=== PATIENT | female | born 2000 | race Caucasian/White ===

== ENCOUNTER 2024-01-24 08:06 | Emergency (ER) | payer OTHER, SELFPAY ==
[2024-01-24] VITALS (12 sets, daily range): BP systolic 106–171; BP diastolic 69–125; PULSE 69–101; RESP 16–20; TEMP 36.7–37.6; O2SAT 97–100; BMI 35.5
--- NOTE | 2024-01-24 08:37 | EXP.UTC ---
Discharge Plan Disposition Patient Disposition: Still a Patient Condition: Fair Prescriptions Prescriptions: No Action No Known Home Medications Referrals Follow up/Referrals: Provider,Referral, MD [Primary Care Provider] - See instructions Clinical Impressions Clinical Impression: Abdominal pain Print Language Print Language: Czech Discharge ED Provider: Paresh Mcmahon [facility] [place] Stated complaint: nausea, vomiting, right abd pain Mode of Arrival: Ambulatory Source of Information: Patient Limitations: No Limitations Time Seen by Provider: 01/24/24 08:36 Description of Symptoms (Recalled from Triage Doc. by RN): PATIENT C/O RLQ PAIN, NAUSEA, VOMITING, DIARRHEA AND FEVER X 4 DAYS. PATIENT REPORTS SHE HAS NOT URINATED IN APPROX 24 HOURS HEENT Symptoms (Recalled from RN notes): No Resp Symptoms (Recalled from RN notes): No Skin Symptoms (Recalled from RN notes): No MS Symptoms (Recalled from RN notes): No Functional Status (Recalled from RN notes): WNL History of Present Illness Provider Complaint: She states that she has had right lower quad abdominal pain, n/v/d for the past 4 days. She states that she is not holding any thing down. She states that she has not voided or felt the need to in the past 24 hours. She last vomited on arrival to the [facility] here. Related Data Home Medications ?Medication ?Instructions ?Recorded ?Confirmed No Known Home Medications 01/24/24 01/24/24 Allergies Allergy/AdvReac Type Severity Reaction Status Date / Time Sulfa (Sulfonamide Allergy Hives Verified 01/24/24 08:23 Antibiotics) Worker's Comp Is this a Worker's Comp case?: No [facility] Disclaimer: The information contained in this section may have been updated after the patient was seen, as this information can be updated by other users. Medical History (Updated 01/24/24 @ 09:00 by Larry Escamilla APRN) Urinary tract infection Social History Smoking Status: Never smoker alcohol intake: never current occupational status: employed Travel in the last 8 weeks: None ROS Obtained: Yes All systems reviewed & no additional complaints except as documented Constitutional Constitutional: Denies chills, Denies fever(s) and Reports poor appetite ENT Ears, Nose, Mouth, and Throat: Denies dizziness and Denies sore throat Cardiovascular Cardiovascular: Denies dyspnea Respiratory Respiratory: Denies chest congestion, Denies cough and Denies dyspnea Genitourinary Female Genitourinary: Denies difficulty voiding, Denies dysuria, Denies hematuria, Denies urinary frequency, Denies urinary incontinence, Denies urinary hesitancy and Denies urinary urgency Musculoskeletal Musculoskeletal: Denies arthralgias Integumentary/Breasts Skin/Breast: Denies rash Neurologic Neurologic: Denies dizziness Physical Exam General General appearance: alert and in no apparent distress Head Head exam: atraumatic and normocephalic Eye Eye exam: Present normal appearance, PERRL and EOMI ENT ENT exam: Present normal exam, normal oropharynx, mucous membranes moist, TM's normal bilaterally and normal external ear exam Neck Neck exam: Present normal inspection, full ROM and trachea midline; Absent tenderness, meningismus or lymphadenopathy Chest Chest inspection: Present normal inspection and symmetric chest wall rise; Absent tenderness, rash or abscess Respiratory Respiratory exam: Present normal lung sounds bilaterally; Absent respiratory distress, wheezes or stridor Cardiovascular Cardiovascular exam: Present regular rate and normal rhythm; Absent irregular rhythm, systolic murmur, diastolic murmur or JVD Abdominal Exam Abdominal exam: Present soft, guarding, normal bowel sounds and diminished bowel sounds; Absent tenderness Extremities Exam Extremities exam: Present normal inspection and full ROM; Absent tenderness Back Exam Back exam: Present normal inspection and full ROM; Absent tenderness, CVA tenderness (R) or CVA tenderness (L) Neurological Exam Neurological exam: Present alert, oriented X3 and CN II-XII intact Psychiatric Psychiatric exam: Present normal affect and normal mood Skin Skin exam: Present warm, dry, intact and normal color Lymphatic Lymphatic Findings: no adenopathy Medical Decision Making Medical Records Medical records reviewed: No I reviewed the patient's medical records. Screening: Per USPSTF and CDC recommendations, given the prevalence of disease in our region, it is our hospital?s policy to screen for HIV and viral Hepatitis for all patients aged 18 and over and those with ongoing risk factors. Dawson Inquiry Pt receiving controlled substance: No Vital Signs: 01/24/24 08:20 Temperature 98.4 F Temperature Source Oral Pulse Rate [Left Brachial] 95 H Respiratory Rate 18 Blood Pressure [Left Arm] 125/84 Blood Pressure Mean [Left Arm] 97 Blood Pressure Source [Left Arm] Automatic Cuff Blood Pressure Position [Left Arm] Sitting 02 Sat by Pulse Oximetry 97 Oxygen Delivery Method Room Air
--- NOTE | 2024-01-24 09:02 | PC.NURSE ---
dr aguero at bedside
--- NOTE | 2024-01-24 09:05 | ED_ITS ---
Discharge Plan Disposition Patient Disposition: Home, Self-Care Condition: Good Prescriptions Prescriptions: New ondansetron 4 mg tablet,disintegrating 4 mg PO Q6H PRN (Reason: nausea and vomiting) Qty: 14 0RF promethazine 12.5 mg tablet 12.5 mg PO Q6H PRN (Reason: allergy symptoms) Qty: 14 0RF Rx Instructions: 3 doses during day; last dose no later than 4 hr before bedtime Referrals Follow up/Referrals: Provider,Referral, MD [Primary Care Provider] - See instructions Activity Restrictions/Add. Instructions Additional Instructions/Restrictions: Recommend taking Tylenol 1000 mg every 6 hours and ibuprofen 600 mg every 6 hours as needed for abdominal pain. Take Zofran as needed for nausea and vomiting and take Phenergan as needed for persistent nausea and vomiting after that. Follow-up with primary care doctor. Please return the emerged part with any new, concerning, worsening symptoms. Clinical Impressions Clinical Impression: Acute mesenteric adenitis Abdominal pain Qualifiers: Abdominal location: periumbilical Qualified Code(s): R10.33 - Periumbilical pain Instructions Patient Instructions: DI for Acute Abdominal Pain Print Language Print Language: Japanese Discharge ED Provider: Paresh Mcmahon General Adult HPI General Chief complaint: Abdominal Pain Stated complaint: nausea, vomiting, right abd pain Time Seen by Provider: 01/24/24 08:36 Mode of Arrival: Ambulatory Source of Information: Patient Limitations: No Limitations Description of Symptoms (Recalled from ER Triage Doc. by RN): PATIENT C/O RLQ PAIN, NAUSEA, VOMITING, DIARRHEA AND FEVER X 4 DAYS. PATIENT REPORTS SHE HAS NOT URINATED IN APPROX 24 HOURS History of Present Illness HPI narrative: This is a 23-year-old female with no significant past medical history who presents with periumbilical abdominal pain radiating to her right lower quadrant over the last 3 days. States that her pain is dull and constant, better whenever she presses on it. Reports inability to tolerate oral intake and nonbloody, nonbilious vomiting. Denies diarrhea. Denies urinary symptoms. States that she was told that she had chronic appendicitis at an outside hospital back in May and that she has had intermittent abdominal pain over the last few months since then. States that this pain feels similar however worse. Related Data Previous Rx's ?Medication ?Instructions ?Recorded ondansetron 4 mg disintegrating 4 mg PO Q6H PRN nausea and 01/24/24 tablet vomiting #14 tabs promethazine 12.5 mg tablet 12.5 mg PO Q6H PRN allergy 01/24/24 symptoms #14 tabs Allergies Allergy/AdvReac Type Severity Reaction Status Date / Time Sulfa (Sulfonamide Allergy Hives Verified 01/24/24 08:23 Antibiotics) [facility] Disclaimer: The information contained in this section may have been updated after the patient was seen, as this information can be updated by other users. Medical History (Updated 01/24/24 @ 13:17 by Paresh Mcmahon MD) Urinary tract infection Social History (Updated 01/24/24 @ 09:01 by Larry Escamilla APRN) Smoking Status: Never smoker alcohol intake: never current occupational status: employed Travel in the last 8 weeks: None ROS Obtained: Yes All systems reviewed & no additional complaints except as documented Physical Exam General General appearance: alert and in no apparent distress Eye Eye exam: Present normal appearance, PERRL and EOMI Respiratory Respiratory exam: Present normal lung sounds bilaterally; Absent respiratory distress Cardiovascular Cardiovascular exam: Present regular rate and normal rhythm Abdominal Exam Abdominal exam: Present soft, distention and tenderness (Right lower quadrant); Absent guarding or rebound Extremities Exam Extremities exam: Present normal inspection Neurological Exam Neurological exam: Present alert and oriented X3 Skin Skin exam: Present warm and dry Medical Decision Making Medical Records Medical records reviewed: Yes I reviewed the patient's medical records. Screening: Per USPSTF and CDC recommendations, given the prevalence of disease in our region, it is our hospital?s policy to screen for HIV and viral Hepatitis for all patients aged 18 and over and those with ongoing risk factors. Dawson Inquiry Pt receiving controlled substance: No Vital Signs: 01/24/24 08:20 01/24/24 08:52 01/24/24 08:53 Temperature 98.4 F 99.6 F Temperature Source Oral Oral Pulse Rate 98 H Pulse Rate [Left Brachial] 95 H 101 H Respiratory Rate 18 20 Blood Pressure 171/125 H Blood Pressure [Left Arm] 125/84 106/77 L Blood Pressure Mean 137 Blood Pressure Mean [Left Arm] 97 86 Blood Pressure Source [Left Arm] Automatic Cuff Blood Pressure Position [Left Arm] Sitting 02 Sat by Pulse Oximetry 97 98 100 Oxygen Delivery Method Room Air Room Air Room Air 01/24/24 09:01 01/24/24 10:49 01/24/24 11:30 Temperature Temperature Source Pulse Rate 101 H 69 71 Pulse Rate [Left Brachial] Respiratory Rate 18 Blood Pressure 106/77 L 156/77 H 140/69 Blood Pressure [Left Arm] Blood Pressure Mean 86 Blood Pressure Mean [Left Arm] Blood Pressure Source [Left Arm] Blood Pressure Position [Left Arm] 02 Sat by Pulse Oximetry 99 99 100 Oxygen Delivery Method Room Air Room Air 01/24/24 12:00 01/24/24 12:15 01/24/24 12:30 Temperature Temperature Source Pulse Rate 81 75 81 Pulse Rate [Left Brachial] Respiratory Rate 18 18 Blood Pressure 147/83 H 147/83 H 166/87 H Blood Pressure [Left Arm] Blood Pressure Mean 109 Blood Pressure Mean [Left Arm] Blood Pressure Source [Left Arm] Blood Pressure Position [Left Arm] 02 Sat by Pulse Oximetry 99 98 98 Oxygen Delivery Method Room Air 01/24/24 13:01 Temperature Temperature Source Pulse Rate 83 Pulse Rate [Left Brachial] Respiratory Rate 18 Blood Pressure 125/70 Blood Pressure [Left Arm] Blood Pressure Mean 88 Blood Pressure Mean [Left Arm] Blood Pressure Source [Left Arm] Blood Pressure Position [Left Arm] 02 Sat by Pulse Oximetry 97 Oxygen Delivery Method Lab Data Lab Results 01/24/24 08:54: WBC 4.2 L, RBC 4.79, Hgb 14.0, Hct 42.2, MCV 88.0, MCH 29.2, MCHC 33.2, RDW 13.1, Plt Count 234, MPV 9.0, Neut % (Auto) 55.8, Lymph % (Auto) 34.5, [place] % (Auto) 5.8, Eos % (Auto) 2.9, Baso % (Auto) 1.0, Neut # (Auto) 2.4, Lymph # (Auto) 1.5, [place] # (Auto) 0.2, Eos # (Auto) 0.1, Baso # (Auto) 0.0, Sodium 139, Potassium 3.5, Chloride 104, Carbon Dioxide 24, Anion Gap 14.5, BUN 9, Creatinine 0.70, Estimated Creat Clear 197, Estimated GFR 104, Est GFR ( Amer) 125, Glucose 89, Lactate 0.7, Calcium 9.0, Total Bilirubin 0.6, AST 24, ALT 32, Alkaline Phosphatase 61, Total Protein 7.1, Albumin 4.1, Globulin 3.0, Albumin/Globulin Ratio 1.4, Lipase 55, Serum HCG, Qual Negative 01/24/24 11:00: Urine Color Yellow, Urine Appearance Sl cloudy, Urine pH 6.5, Ur Specific [place] <= 1.005, Urine Protein Negative, Urine Glucose (UA) Negative, Urine Ketones Negative, Urine Blood Negative, Urine Nitrate Negative, Urine Bilirubin Negative, Urine Urobilinogen 0.2, Ur Leukocyte Esterase Trace, Urine RBC None, Urine WBC 3-5, Ur Squamous Epith Cells 5-10, Urine Bacteria Trace 01/24/24 08:54 01/24/24 08:54 Orders (Tests/Meds): ED MEDICATIONS Discontinued Medications Generic Name Dose Route Start Last Admin Trade Name Freq PRN Reason Stop Dose Admin Acetaminophen 1,000 mg 01/24/24 09:08 01/24/24 09:20 Acetaminophen 500mg Tab PO 01/24/24 09:09 1,000 mg ONCE ONE Administration Lactated Ringer's 500 mls @ 999 mls/hr 01/24/24 09:11 01/24/24 09:23 Lactated Ringer's 1000 Ml Bag IV 01/24/24 09:41 Not Given .Q31M ONE Lactated Ringer's 1,000 mls @ 999 mls/hr 01/24/24 09:22 01/24/24 09:23 Lactated Ringer's 1000 Ml Bag IV 01/24/24 10:22 999 mls/hr .Q1H1M ONE Administration Iopamidol 75 ml 01/24/24 12:26 Iopamidol-370 (76%);100ml Bottle IV 01/24/24 12:27 ONCE ONE Ketorolac Tromethamine 15 mg 01/24/24 09:08 01/24/24 09:21 Ketorolac 30mg/Ml Vial IV 01/24/24 09:09 15 mg ONCE ONE Administration Morphine Sulfate 4 mg 01/24/24 09:50 01/24/24 09:56 Morphine 4mg/Ml Syringe IV 01/24/24 09:51 4 mg ONCE ONE Administration Morphine Sulfate 4 mg 01/24/24 12:04 01/24/24 12:06 Morphine 4mg/Ml Syringe IV 01/24/24 12:05 4 mg ONCE ONE Administration Ondansetron HCl 4 mg 01/24/24 09:08 01/24/24 09:21 Ondansetron 4mg/2ml Vial IV 01/24/24 09:09 4 mg ONCE ONE Administration Promethazine HCl 12.5 mg 01/24/24 09:50 01/24/24 09:56 Promethazine Hcl 25mg/Ml 1ml Vial IV 01/24/24 09:51 12.5 mg ONCE ONE Administration Sodium Chloride 25 ml 01/24/24 09:50 01/24/24 09:56 Sodium Chloride 0.9% 25ml Bag IV 01/24/24 09:51 25 ml ONCE ONE Administration Sodium Chloride 10 ml 01/24/24 12:26 Sodium Chloride 0.9% 10ml Syr (Rad Only) IV 01/24/24 12:27 ONCE ONE ORDERS Category Date Time Status CT abdomen pelvis w con Stat Cat Scan 01/24/24 09:08 Completed CBC w/Auto Diff [Complete Blood Count Auto Diff] Stat Lab 01/24/24 08:54 Completed CMP [Comprehensive Metabolic Panel] Stat Lab 01/24/24 08:54 Completed HCG Qualitative, Serum Stat Lab 01/24/24 08:54 Completed Lactic Acid Stat Lab 01/24/24 08:54 Completed Lipase Stat Lab 01/24/24 08:54 Completed Urinalysis and Microscopic Stat Lab 01/24/24 11:00 Completed Medical Decision Narrative: In summary, this 23-year-old female presents to the emergency department today with right lower quadrant abdominal pain for the last 3 days. On initial evaluation patient is afebrile, nontachycardic, normotensive, tender to the right lower quadrant. Differential diagnosis includes but is not limited to acute appendicitis, abscess, ectopic , UTI. Based on these concerns, I ordered CBC, CMP, test, lipase, lactate, urinalysis, CT abdomen pelvis with IV contrast. ECG personally interpreted as noted above. Patient received Tylenol and Toradol for treatment. Labs personally reviewed demonstrate mild leukopenia at 4.2, unremarkable CMP, normal lipase, negative test, no evidence of UTI. CT imaging personally interpreted demonstrates no evidence of acute appendicitis. Radiology report notes inflamed mesenteric lymph nodes and a small amount of free pelvic fluid with ovarian cyst. It is possible that patient's symptoms are explained by ruptured ovarian cyst versus mesenteric adenitis. Either way, treatment is with NSAIDs. During her stay, patient ultimately required 2 doses of morphine 4 mg IV and Phenergan. On reassessment patient is tolerating oral intake without difficulty without significant improvement in pain. Considered hospitalization, however patient was comfortable with discharge and was instructed on pain control at home. Prescribe Zofran and Phenergan. She is to follow-up with her PCP. Ultimately discharged in stable condition. Critical Care Critical Care Time Critical Care Time: No
--- NOTE | 2024-01-24 09:08 | CT_ITS ---
PROCEDURE INFORMATION: Exam: CT Abdomen And Pelvis With Contrast Exam date and time: 01/24/2024 10:02 AM Age: 23 years old Clinical indication: Abdominal pain; Additional info: Rlq abd pain TECHNIQUE: Imaging protocol: Computed tomography of the abdomen and pelvis with contrast. Radiation optimization: All CT scans at this facility use at least one of these dose optimization techniques: automated exposure control; mA and/or kV adjustment per patient size (includes targeted exams where dose is matched to clinical indication); or iterative reconstruction. Contrast material: ISOVUE; Contrast volume: 75 ml; Contrast route: IV; COMPARISON: No relevant prior studies available. FINDINGS: Lungs: Included lung bases are clear. Liver: Liver is normal. No lesions. Gallbladder and biliary ducts: Gallbladder is normal. No calcified stones. No ductal dilatation. Pancreas: Pancreas is normal. No ductal dilatation. Spleen: Spleen is normal. Adrenal glands: Adrenal glands are normal. Kidneys and ureters: Kidneys are normal. No stones identified. No hydronephrosis or hydroureter. Stomach and bowel: No evidence of bowel obstruction or acute bowel abnormality. Appendix: No evidence of appendicitis. Intraperitoneal space: Trace nonspecific low-density free fluid in the pelvis. Vasculature: No acute abnormality. No abdominal aortic aneurysm. Pelvic phlebolith. Lymph nodes: Few mildly prominent subcentimeter lymph nodes in the right lower abdomen. Otherwise, no enlarged lymph nodes. Urinary bladder: Urinary bladder is unremarkable for degree of distention. Reproductive: Approximately 3 cm right adnexal cyst. Otherwise, unremarkable as visualized. Bones/joints: No acute osseous abnormality or suspicious osseous lesion. Soft tissues: Very small fat containing umbilical hernia. IMPRESSION: 1. No evidence of acute bowel abnormality or acute appendicitis. 2. Few mildly prominent subcentimeter lymph nodes in the right lower abdomen, nonspecific, can be seen with mesenteric adenitis in the appropriate clinical setting. 3. Additional incidental findings as above.
[2024-01-24 09:16] LABS: Eosinophils # 0.1 K/mm3 (0.0-0.4); Eosinophils % 2.9 % (0.1-12.0); Hematocrit 42.2 % (37.0-47.0); Lymphocytes # 1.5 K/mm3 (0.7-4.5); Lymphocytes % 34.5 % (10-50); Mean Corpuscular HGB Conc 33.2 g/dL (31.8-35.4); Mean Corpuscular Hemoglobin 29.2 pg (27.0-31.2); Monocytes # 0.2 K/mm3 (0.1-1.0); Monocytes % 5.8 % (1.7-9.3); Neutrophils # 2.4 K/mm3 (1.8-7.8); Neutrophils % 55.8 % (37.0-80.0); Platelet Count 234 K/mm3 (142-424); Red Blood Count 4.79 M/mm3 (4.20-5.40); Red Cell Distribution Width 13.1 % (11.5-17.5); White Blood Count 4.2 K/mm3 (4.8-10.8)
[2024-01-24 09:20] LABS: HCG Qualitative, Serum Negative (Negative)
[2024-01-24] MEDS: ACETAMINOPHEN 500MG TAB 1000 MG PO (09:20)
[2024-01-24 09:21] LABS: Alanine Aminotransferase 32 U/L (12-78); Albumin Level 4.1 g/dl (3.5-5.0); Albumin/Globulin Ratio 1.4 (1.1-1.8); Alkaline Phosphatase 61 U/L (38-126); Anion Gap 14.5 mEq/L (5-15); Aspartate Amino Transferase 24 U/L (14-36); Bilirubin,Total 0.6 mg/dl (0.2-1.3); Blood Urea Nitrogen 9 mg/dl (7-17); Carbon Dioxide 24 mmol/L (22.0-30.0); Chloride 104 mmol/L (98-107); Creatinine Clearance Estimated 197 mL/min (50-200); Estimated Glomerular Filt Rate 104 ml/min (>60); GFR (African American) 125 ML/MIN (>60); Glucose 89 mg/dl (74-100); Lactic Acid 0.7 mmol/L (0.7-2.1); Lipase 55 U/L (23-300); Potassium 3.5 mmoL/L (3.5-5.1); Sodium 139 mmol/L (136-145); Total Protein,Serum 7.1 g/dl (6.3-8.2)
[2024-01-24] MEDS: ONDANSETRON 4MG/2ML VIAL 4 MG IV (09:21)
[2024-01-24] MEDS: KETOROLAC 30MG/ML VIAL 15 MG IV (09:21)
[2024-01-24] MEDS: LACTATED RINGERS 1000ML 1,000 ML 999 ML IV (09:23)
[2024-01-24] MEDS: MORPHINE 4MG/ML SYRINGE 4 MG IV ×2 (09:56→12:06)
[2024-01-24] MEDS: SODIUM CHLORIDE 0.9% 25ML BAG 25 ML IV (09:56)
[2024-01-24] MEDS: PROMETHAZINE HCL 25MG/ML 1ML VIAL 12.5 MG IV (09:56)
[2024-01-24 11:08] LABS: Microscopic, Urine URINE MICROSCOPIC (MICROSCOPIC)
[2024-01-24 11:13] LABS: Appearance,Urine SL CLOUDY (Clear); Bilirubin,Urine Negative (Negative); Blood, Urine Negative (Negative); Color,Urine YELLOW (Yellow); Glucose,Urine (UA) Negative (Negative); Ketones,Urine Negative (Negative); Leukocyte Esterase,Urine TRACE (Negative); Nitrate,Urine Negative (Negative); PH,Urine 6.5 (5.0-8.5); Protein,Urine Negative (Negative); Specific Gravity, Urine <= 1.005 (1.005-1.030); Urobilinogen,Urine 0.2 EU/dl (0.2)
[2024-01-24 11:25] LABS: Bacteria,Urine Trace /lpf
== END 2024-01-24 13:24 | disposition home or self-care (01) ==
LOC: UTC 08:27 → ER 08:51
PROVIDERS: Emergency Provider Student in an Organized Health Care Education/Training Program
DX: I88.0 Nonspecific mesenteric lymphadenitis (principal); R10.31 Right lower quadrant pain; R11.2 Nausea with vomiting, unspecified; R19.7 Diarrhea, unspecified; R50.9 Fever, unspecified
CPT/HCPCS: 74177; 80053; 81001; 83605; 83690; 84703; 85025; 96361; 96374; 96375; 99285; J1885; J2270; J2405; J2550; J7120

== ENCOUNTER 2024-07-15 08:55 | Outpatient (CLI) | payer OTHER, SELFPAY ==
[2024-07-15 16:54] LABS: Basophils % 0.5 % (0.1-2.0); Eosinophils # 0.1 Kmm3 (0.0-0.4); Eosinophils % 1.8 % (0.1-12.0); Hematocrit 39.7 % (37.0-47.0); Hemoglobin 12.9 g/dL (12.2-16.2); Immature Granulocytes # 0.01 10^3uL; Immature Granulocytes % 0.2 %; Lymphocytes # 2.6 K/mm3 (0.7-4.5); Lymphocytes % 41.6 % (10-50); Mean Corpuscular HGB Conc 32.5 g/dL (31.8-35.4); Mean Corpuscular Hemoglobin 28.7 pg (27.0-31.2); Mean Corpuscular Volume 88.4 fl (81-99); Mean Platelet Volume 11.8 fl (7.4-10.4); Monocytes # 0.3 K/mm3 (0.1-1.0); Monocytes % 4.9 % (1.7-9.3); Neutrophils # 3.2 K/mm3 (1.8-7.8); Nucleated Red Blood Cells # 0 10^3/uL; Nucleated Red Blood Cells % 0 %; Platelet Count 228 K/mm3 (142-424); Red Blood Count 4.49 M/mm3 (4.20-5.40); Red Cell Distribution Width 12.4 % (11.5-17.5); Red Cell Distribution Width-SD 40.3 fL; White Blood Count 6.3 K/mm3 (4.8-10.8)
[2024-07-15 19:07] LABS: Alanine Aminotransferase 21 U/L (12-78); Albumin Level 4.6 g/dl (3.5-5.0); Albumin/Globulin Ratio 1.9 (1.1-1.8); Alkaline Phosphatase 61 U/L (38-126); Anion Gap 10.9 mEq/L (5-15); Aspartate Amino Transferase 25 U/L (14-36); Bilirubin,Total 0.5 mg/dl (0.2-1.3); Blood Urea Nitrogen 15 mg/dl (7-17); Calcium 9.2 mg/dl (8.4-10.2); Carbon Dioxide 23 mmol/L (22.0-30.0); Chloride 106 mmol/L (98-107); Chol/HDL Ratio 1.9 (1-3.5); Cholesterol 126 mg/dl (140-200); Estimated Glomerular Filt Rate 104 ml/min (>60); GFR (African American) 125 ML/MIN (>60); Globulin 2.4 g/dL (1.3-3.2); Glucose 72 mg/dl (74-100); HDL Cholesterol 66 mg/dl (40-60); Potassium 3.9 mmoL/L (3.5-5.1); Sodium 136 mmol/L (136-145); Triglycerides 61 mg/dl (30-150); VLDL Cholesterol 12 mg/dL (0-40)
[2024-07-15 19:18] LABS: Direct LDL Cholesterol 50.97 mg/dL (100-129)
[2024-07-15 19:26] LABS: 25-OH Vitamin D, Total 32.6 ng/mL (30-100)
[2024-07-15 19:38] LABS: Thyroid Stimulating Hormone 3.41 uIU/mL (0.465-4.68)
[2024-07-15 19:59] LABS: HIV Combo NEGATIVE (Negative)
[2024-07-15 20:06] LABS: Hepatitis C Ab Qual. W/ RFX NEGATIVE (Negative)
== END 2024-07-15 23:59 | disposition home or self-care (01) ==
LOC: LAB.DROPOF 07-16 12:44
PROVIDERS: PCP Nurse Practitioner Family; Visit Provider Nurse Practitioner Family
DX: Z00.00 Encounter for general adult medical examination without abnormal findings (principal); Z11.4 Encounter for screening for human immunodeficiency virus [HIV]; Z11.59 Encounter for screening for other viral diseases
CPT/HCPCS: 80053; 80061; 82306; 84443; 85025; 86803; 87389

== ENCOUNTER 2024-08-05 03:30 | Day surgery (SDC) | payer OTHER, SELFPAY ==
[2024-08-05] VITALS (22 sets, daily range): BP systolic 101–139; BP diastolic 41–107; PULSE 72–122; RESP 14–22; TEMP 36.1–43; O2SAT 95–100; BMI 31.3
--- NOTE | 2024-08-05 03:34 | ED_ITS ---
Discharge Plan Disposition Patient Disposition: Admitted Prescriptions Prescriptions: No Action No Known Home Medications Referrals Follow up/Referrals: Sara Hartmann APRN [Primary Care Provider, Family Practice] - See instructions Clinical Impressions Clinical Impression: Ruptured cyst of ovary, Intra-abdominal bleeding Instructions Patient Instructions: DI for Acute Abdominal Pain Print Language Print Language: Romanian Discharge ED Provider: Chandler Holguin General Adult HPI General Chief complaint: Abdominal Pain Stated complaint: abd pain Time Seen by Provider: 08/05/24 03:34 History of Present Illness HPI narrative: 23-year-old female without significant past medical history presents for right pelvic pain after colitis. Patient reports that started very shortly after intercourse. Denies any significant bleeding. She had mesenteric adenitis in the past and reports that this pain is significantly lower than that. She reports nausea and hot flashes secondary to the pain. She denies any urinary symptoms, history of kidney stones. She has had ovarian cyst that ruptured in the past. Reports that this feels different. Related Data Home Medications ?Medication ?Instructions ?Recorded ?Confirmed No Known Home Medications 07/15/2411/01 Allergies Allergy/AdvReac Type Severity Reaction Status Date / Time Sulfa (Sulfonamide Allergy Hives Verified 07/15/24 08:30 Antibiotics) [facility] Disclaimer: The information contained in this section may have been updated after the patient was seen, as this information can be updated by other users. Medical History Abnormal uterine bleeding Urinary tract infection Surgical History Hx of shoulder surgery Social History Smoking Status: Smoker, status unknown alcohol intake: never current occupational status: employed Travel in the last 8 weeks?: None Have you lived/traveled outside US in past 30 days?: No Contact w/someone who lives/traveled outside US past 30 days?: No Exposure to someone with infectious disease in past 14 days?: No Do you have a fever (greater than 100.4 F or 38 C)?: No Have you tested positive for COVID-19?: No Exposed to someone with COVID-19 in past 14 days?: No Do you have a sore throat?: No Do you have a cough?: No Do you have any weakness?: No Do you have any diarrhea?: No Are you experiencing any unusual bleeding?: No Do you have any muscle aches/pain?: No Do you have any abdominal pain?: Yes Are you experiencing loss of taste or smell?: No ROS Obtained: Yes All systems reviewed & no additional complaints except as documented Physical Exam General General appearance: alert and in distress Head Head exam: atraumatic and normocephalic Eye Eye exam: Present normal appearance, PERRL and EOMI ENT ENT exam: Present normal oropharynx and normal external ear exam Neck Neck exam: Present normal inspection and full ROM Chest Chest inspection: Present normal inspection and symmetric chest wall rise; Absent tenderness Respiratory Respiratory exam: Present normal lung sounds bilaterally; Absent respiratory distress Cardiovascular Cardiovascular exam: Present regular rate and normal rhythm Abdominal Exam Abdominal exam: Present soft and tenderness (Severe right lower quadrant/pelvic abdominal tenderness); Absent distention or guarding Extremities Exam Extremities exam: Present normal inspection; Absent edema or joint swelling Back Exam Back exam: Present normal inspection; Absent tenderness Neurological Exam Neurological exam: Present alert and oriented X3; Absent motor sensory deficit Psychiatric Psychiatric exam: Present normal affect and normal mood Skin Skin exam: Present warm, dry and normal color Lymphatic Lymphatic Findings: no adenopathy Medical Decision Making Medical Records Medical records reviewed: Yes I reviewed the patient's medical records. Screening: Per USPSTF and CDC recommendations, given the prevalence of disease in our region, it is our hospital?s policy to screen for HIV and viral Hepatitis for all patients aged 18 and over and those with ongoing risk factors. Dawson Inquiry Pt receiving controlled substance: No Dawson was queried for this patient: No Vital Signs: 08/05/24 03:35 08/05/24 03:40 08/05/24 03:53 Temperature 97.9 F 97.9 F Temperature Source Oral Oral Pulse Rate 122 H 102 H Pulse Rate [Left] 122 H Respiratory Rate 14 14 Blood Pressure 139/107 H 122/64 Blood Pressure [Right Arm] 139/107 H Blood Pressure Mean [Right Arm] 117 Blood Pressure Source Automatic Cuff Blood Pressure Source [Right Arm] Automatic Cuff 02 Sat by Pulse Oximetry 100 100 100 Oxygen Delivery Method Room Air Room Air Room Air 08/05/24 04:00 08/05/24 04:40 08/05/24 04:45 Temperature Temperature Source Pulse Rate 103 H 78 85 Pulse Rate [Left] Respiratory Rate 16 Blood Pressure 111/65 113/69 113/69 Blood Pressure [Right Arm] Blood Pressure Mean [Right Arm] Blood Pressure Source Automatic Cuff Blood Pressure Source [Right Arm] 02 Sat by Pulse Oximetry 100 100 98 Oxygen Delivery Method Room Air Room Air Room Air 08/05/24 04:53 Temperature Temperature Source Pulse Rate Pulse Rate [Left] 80 Respiratory Rate 16 Blood Pressure Blood Pressure [Right Arm] 117/72 Blood Pressure Mean [Right Arm] 87 Blood Pressure Source Blood Pressure Source [Right Arm] Automatic Cuff 02 Sat by Pulse Oximetry 100 Oxygen Delivery Method Room Air Lab Data Lab results reviewed: Yes I reviewed the patient's lab results. Lab Results 08/05/24 03:35: WBC 6.2, RBC 4.67, Hgb 13.5, Hct 40.4, MCV 86.5, MCH 28.9, MCHC 33.4, RDW 12.4, Plt Count 241, MPV 10.9 H, Neut % (Auto) 63.0, Lymph % (Auto) 29.2, [place] % (Auto) 5.3, Eos % (Auto) 1.8, Baso % (Auto) 0.5, Neut # (Auto) 3.9, Lymph # (Auto) 1.8, [place] # (Auto) 0.3, Eos # (Auto) 0.1, Baso # (Auto) 0.0, Sodium 138, Potassium 4.0, Chloride 108 H, Carbon Dioxide 24, Anion Gap 10.0, BUN 15, Creatinine 0.80, Estimated Creat Clear 157, Estimated GFR 89, Est GFR ( Amer) 108, Glucose 98, Calcium 9.4, Total Bilirubin 0.3, AST 28, ALT 38, Alkaline Phosphatase 69, Total Protein 7.5, Albumin 4.5, Globulin 3.0, Albumin/Globulin Ratio 1.5, Serum HCG, Qual Negative 08/05/24 03:35 08/05/24 03:35 Orders (Tests/Meds): ED MEDICATIONS Discontinued Medications Generic Name Dose Route Start Last Admin Trade Name Freq PRN Reason Stop Dose Admin Acetaminophen 1,000 mg 08/05/24 03:36 08/05/24 03:43 Acetaminophen 500mg Tab PO 08/05/24 03:37 1,000 mg ONCE ONE Administration Hydromorphone HCl 0.5 mg 08/05/24 03:36 08/05/24 03:44 Hydromorphone 2mg/Ml Syringe IV 08/05/24 03:37 0.5 mg ONCE ONE Administration Hydromorphone HCl 0.5 mg 08/05/24 03:55 08/05/24 04:00 Hydromorphone 2mg/Ml Syringe IV 08/05/24 03:56 0.5 mg ONCE ONE Administration Hydromorphone HCl 0.5 mg 08/05/24 05:05 08/05/24 05:18 Hydromorphone 2mg/Ml Syringe IV 08/05/24 05:06 0.5 mg ONCE ONE Administration Ondansetron HCl 4 mg 08/05/24 03:36 08/05/24 03:44 Ondansetron 4mg/2ml Vial IV 08/05/24 03:37 4 mg ONCE ONE Administration ORDERS Category Date Time Status Type and Screen Stat BBK 08/05/24 05:05 Received US transvaginal Stat Exams 08/05/24 03:36 Completed CBC w/Auto Diff [Complete Blood Count Auto Diff] Stat Lab 08/05/24 03:35 Completed CMP [Comprehensive Metabolic Panel] Stat Lab 08/05/24 03:35 Completed Serum [HCG Qualitative, Serum] Stat Lab 08/05/24 03:35 Completed UA [Urinalysis and Microscopic] Stat Lab 08/05/24 03:36 Ordered Medical Decision Narrative: 23-year-old female with history of ovarian cyst presents with acute severe pain after coitus. History was obtained via interactive discussion with patient. On arrival, patient is [afebrile, hemodynamically stable, satting appropriately, alert, oriented x4, GCS 15], moving all extremities spontaneously. Full physical exam performed and significant for patient in distress secondary to severe right lower quadrant/right pelvic abdominal pain and tenderness Differential includes but is not limited to ovarian torsion, ruptured ovarian cyst, ectopic , endometriosis, appendicitis, kidney stone. Patient was given Dilaudid, Zofran, Tylenol for symptomatic management and correction of underlying abnormalities. Workup initiated including CBC CMP urine transvaginal ultrasound to assess for torsion. On re-evaluation, patient has worsening pain and was given an additional dose of Dilaudid. She remains hemodynamically stable. Laboratory workup independently interpreted by me and significant for negative test, no significant leukocytosis, normal chemistry panel.. Imaging independently interpreted by me and significant for transvaginal ultrasound with likely ruptured hemorrhagic cyst with significant volume of blood within the abdomen concerning for hemorrhage. See radiology read for full review of final results. Given patient history, exam and workup, patient's presentation most likely represents ruptured hemorrhagic cyst with large volume of intra-abdominal blood. Interactive discussion was had with Dr. Pappas who will take the patient for emergent laparoscopy for further assessment. Procedures Risk/Benefits of Procedure(s) Were Explained: Yes Critical Care Critical Care Time Critical Care Time: Yes Attestation: On 08/05/24, the high probability of a clinically significant, sudden or life threatening deterioration of the following system(s) required my full and direct attention, intervention and personal management. The time I documented below is in addition to time spent performing reported procedures but includes the following listed in this critical care notation. Total Time Total Critical Care Time: 45
--- NOTE | 2024-08-05 03:36 | US_ITS ---
PROCEDURE INFORMATION: Exam: US Pelvis, Transvaginal, Non-Obstetric Exam date and time: 08/05/2024 3:58 AM Age: 23 years old Clinical indication: Abdominal pain and pelvic pain; Right lower quadrant; Acute onset rlq pain neg preg; Additional info: Torsion TECHNIQUE: Imaging protocol: Real-time transvaginal pelvic (non-obstetric) ultrasound with image documentation. Transvaginal imaging was used for better evaluation of the endometrium, adnexa, and/or cervix. COMPARISON: CT ABDOMEN PELVIS W CON 01/24/2024 10:02 AM FINDINGS: Uterus: Uterus is normal. Endometrial stripe is normal. Right ovary/adnexa: Enlarged measuring 5.7 x 4.9 x 5.4 cm with a peripheral thick-walled cyst measuring 4.6 x 3.4 cm with internal lace-like echotexture likely representing a hemorrhagic cyst. Normal ovarian blood flow on color Doppler. Left ovary/adnexa: Normal. No mass. Normal ovarian blood flow on color Doppler. Urinary bladder: Urinary bladder is limited. Intraperitoneal space: Large amount of free fluid in the pelvis and extending up into Morison's pouch with low-level internal echoes. IMPRESSION: 1. Enlargement of the right ovary secondary to a thick-walled peripheral lesion with appearance likely corresponding with a hemorrhagic cyst. 2. Large amount of free fluid in the pelvis and extending up into Morison's pouch with low-level internal echoes which may represent hemorrhage in the context of a potentially ruptured hemorrhagic cyst. 3. No evidence of ovarian torsion.
--- NOTE | 2024-08-05 03:38 | PC.NURSE ---
automotive specialty technician called
[2024-08-05] MEDS: ACETAMINOPHEN 500MG TAB 1000 MG PO (03:43)
[2024-08-05] MEDS: HYDROMORPHONE 2MG/ML SYRINGE 0.5 MG IV ×3 (03:44→05:18)
[2024-08-05] MEDS: ONDANSETRON 4MG/2ML VIAL 4 MG IV (03:44)
[2024-08-05 03:46] LABS: Basophils % 0.5 % (0.1-2.0); Eosinophils # 0.1 Kmm3 (0.0-0.4); Eosinophils % 1.8 % (0.1-12.0); Hematocrit 40.4 % (37.0-47.0); Hemoglobin 13.5 g/dL (12.2-16.2); Immature Granulocytes # 0.01 10^3uL; Immature Granulocytes % 0.2 %; Lymphocytes # 1.8 K/mm3 (0.7-4.5); Lymphocytes % 29.2 % (10-50); Mean Corpuscular HGB Conc 33.4 g/dL (31.8-35.4); Mean Corpuscular Hemoglobin 28.9 pg (27.0-31.2); Mean Corpuscular Volume 86.5 fl (81-99); Mean Platelet Volume 10.9 fl (7.4-10.4); Monocytes # 0.3 K/mm3 (0.1-1.0); Monocytes % 5.3 % (1.7-9.3); Neutrophils # 3.9 K/mm3 (1.8-7.8); Nucleated Red Blood Cells # 0 10^3/uL; Nucleated Red Blood Cells % 0 %; Platelet Count 241 K/mm3 (142-424); Red Blood Count 4.67 M/mm3 (4.20-5.40); Red Cell Distribution Width 12.4 % (11.5-17.5); Red Cell Distribution Width-SD 39.3 fL; White Blood Count 6.2 K/mm3 (4.8-10.8)
[2024-08-05 03:49] LABS: Albumin Level 4.5 g/dl (3.5-5.0); Chloride 108 mmol/L (98-107); Sodium 138 mmol/L (136-145)
[2024-08-05 03:52] LABS: Alanine Aminotransferase 38 U/L (12-78); Albumin/Globulin Ratio 1.5 (1.1-1.8); Alkaline Phosphatase 69 U/L (38-126); Aspartate Amino Transferase 28 U/L (14-36); Bilirubin,Total 0.3 mg/dl (0.2-1.3); Blood Urea Nitrogen 15 mg/dl (7-17); Calcium 9.4 mg/dl (8.4-10.2); Carbon Dioxide 24 mmol/L (22.0-30.0); Creatinine Clearance Estimated 157 mL/min (50-200); Estimated Glomerular Filt Rate 89 ml/min (>60); GFR (African American) 108 ML/MIN (>60); Glucose 98 mg/dl (74-100); Total Protein,Serum 7.5 g/dl (6.3-8.2)
[2024-08-05 03:58] LABS: HCG Qualitative, Serum Negative (Negative)
--- NOTE | 2024-08-05 04:04 | PC.NURSE ---
Pt to CT scan via stretcher
--- NOTE | 2024-08-05 04:53 | PC.NURSE ---
SURGERY TEAM CALLED IN PER DR. LEE REQUEST.
--- NOTE | 2024-08-05 05:01 | PC.NURSE ---
Surgery consent is filled out and at patient bedside. Pt also informed to remove clothes for surgery.
--- NOTE | 2024-08-05 05:23 | P.HP_ITS ---
History of Present Illness *Admission Date: 08/05/24 *Reason for visit:: Right lower quadrant pain, ruptured ovarian cyst *History of present illness: She is a 23-year-old 0 para 0 young lady who had sudden onset of right lower quadrant after intercourse last night. She said the pain was severe and started on the right side then radiated across her lower abdomen. She came into the emergency department and required Dilaudid for pain relief. Ultrasound performed showed a significant amount of fluid in the pelvis that was also seen in Morison's pouch. Both ovaries were floating in fluid. There was fluid in the cul-de-sac. It appeared on ultrasound that there was a 4 cm hemorrhagic ovarian cyst on the right. [facility] Disclaimer: The information contained in this section may have been updated after the patient was seen, as this information can be updated by other users. Medical History Abnormal uterine bleeding Urinary tract infection Surgical History Hx of shoulder surgery Social History Smoking Status: Smoker, status unknown alcohol intake: never current occupational status: employed Travel in the last 8 weeks?: None Have you lived/traveled outside US in past 30 days?: No Contact w/someone who lives/traveled outside US past 30 days?: No Exposure to someone with infectious disease in past 14 days?: No Do you have a fever (greater than 100.4 F or 38 C)?: No Have you tested positive for COVID-19?: No Exposed to someone with COVID-19 in past 14 days?: No Do you have a sore throat?: No Do you have a cough?: No Do you have any weakness?: No Do you have any diarrhea?: No Are you experiencing any unusual bleeding?: No Do you have any muscle aches/pain?: No Do you have any abdominal pain?: Yes Are you experiencing loss of taste or smell?: No Review of Systems Review of Systems Review of systems:: pertinent systems reviewed and negative unless documented below Meds Home Medications and Allergies Home Medications ?Medication ?Instructions ?Recorded ?Confirmed ?Type No Known Home Medications 07/15/2411/01 History New Prescriptions to Start Prescriptions: Allergies Allergy/AdvReac Type Severity Reaction Status Date / Time Sulfa (Sulfonamide Allergy Hives Verified 07/15/24 08:30 Antibiotics) Exam Data for Last 24 hours Vital signs and Labs for Last 24 Hours: Temp Pulse Resp BP Pulse Ox O2 Del Method 97.9 F 80 16 117/72 100 Room Air 08/05/24 03:40 08/05/24 04:53 08/05/24 04:53 08/05/24 04:53 08/05/24 04:53 08/05/24 04:53 Laboratory Results - last 24 hr 08/05/24 03:35: WBC 6.2, RBC 4.67, Hgb 13.5, Hct 40.4, MCV 86.5, MCH 28.9, MCHC 33.4, RDW 12.4, Plt Count 241, MPV 10.9 H, Neut % (Auto) 63.0, Lymph % (Auto) 29.2, [place] % (Auto) 5.3, Eos % (Auto) 1.8, Baso % (Auto) 0.5, Neut # (Auto) 3.9, Lymph # (Auto) 1.8, [place] # (Auto) 0.3, Eos # (Auto) 0.1, Baso # (Auto) 0.0, Sodium 138, Potassium 4.0, Chloride 108 H, Carbon Dioxide 24, Anion Gap 10.0, BUN 15, Creatinine 0.80, Estimated Creat Clear 157, Estimated GFR 89, Est GFR ( Amer) 108, Glucose 98, Calcium 9.4, Total Bilirubin 0.3, AST 28, ALT 38, Alkaline Phosphatase 69, Total Protein 7.5, Albumin 4.5, Globulin 3.0, Albumin/Globulin Ratio 1.5, Serum HCG, Qual Negative I & O for Last 24 hours: Intake & Output 08/02/24 08/03/24 08/04/24 08/05/24 11:59 11:59 11:59 11:59 Weight 200 lb Constitutional Constitutional: no acute distress *Routine HEENT Exam Head: Present normocephalic Eye: Present EOMI and PERRL ENT: Present mucous membranes moist *Routine Neck Exam Neck: Present supple; Absent lymphadenopathy *Routine Respiratory Exam Respiratory: Present CTA bilaterally *Routine Cardiovascular Exam Cardiovascular: Present RRR *Routine Abdominal Exam Abdominal: Present soft and normoactive bowel sounds; Absent tenderness *Routine Rectal Exam Rectal:: deferred *Routine Genitalia Exam Genitalia:: deferred *Routine Extremities Exam Extremities: Absent cyanosis, clubbing or edema *Routine Skin Exam Skin: Present warm; Absent rash *Routine Neurological Exam Neurological: Present alert and oriented X3 Assessment and Plan *Assessment and plan (1) Rupture of cyst of right ovary: Status: Acute Category: Medical Code(s): N83.201 - Unspecified ovarian cyst, right side (2) Right lower quadrant pain: Status: Acute Category: Medical Code(s): R10.31 - Right lower quadrant pain Plan 1. She had sudden onset of right lower quadrant pain and ultrasound shows what appears to be a hemorrhagic right ovarian cyst. 2. She has a significant amount of fluid in her pelvis and upper abdomen that I suspect is blood. We will go ahead and perform a diagnostic laparoscopy to make sure there is no further bleeding from the ovary. 3. She is hemodynamically stable. She has required Dilaudid for pain relief. 4. We discussed the risks of surgery that includes bleeding, infection, injuries to adjacent structures. We discussed the rare risk of laparotomy. We discussed the possibility of loss of her ovary. All questions were answered and consents were signed.
--- NOTE | 2024-08-05 05:42 | PC.NURSE ---
Pt to OR for Dr. Rogel exploratory laprascopy
--- NOTE | 2024-08-05 06:07 | EXP.ANES.CKL ---
[facility] Disclaimer: The information contained in this section may have been updated after the patient was seen, as this information can be updated by other users. Medical History Abnormal uterine bleeding Urinary tract infection Surgical History Hx of shoulder surgery Social History Smoking Status: Smoker, status unknown alcohol intake: never substance use type: denies use current occupational status: employed Travel in the last 8 weeks?: None [facility] Anesthesia Checklist Patient Identification Patient Identification: Arm Band and Verbal (Name & ) Structural Data Admitted From: Emergency Dept Planned Operative Procedure/s: Exploratory Laparoscopy Consent for Planned Operative Procedure(s) Verified: Yes Verified Documents: Surgical Consent NPO Status Verified Time NPO: 00:00 Chart Verification Results Verified: CBC and BMP Additional verifications Patient : No Anesthesia Reactions: No Airway Assessment Mallampati Score:: Class I C-Spine Mobility Assessed: Yes TMJ Mobility Assessed: No Dentition: Good Dentition Neurological Assessment Level of Consciousness: Awake, Alert and Appropriate Hx Seizures: No Numbness or tingling in extremities: No Anesthesia Plan Anesthesia Risk discussed: Yes Anesthesia Plan: Verified ASA Class: I Anesthesia Type: General
--- NOTE | 2024-08-05 07:00 | EXP.OP.NOTE ---
Date of procedure: 08/05/24 Pre-op Diagnosis:: Severe right lower quadrant pain, ruptured right hemorrhagic ovarian cyst Post-op Diagnosis:: Right lower quadrant pain, ruptured right hemorrhagic ovarian cyst Procedure performed:: Diagnostic lap Surgeon:: Angel Pappas MD MEDICAL RECORDS FIELD TECHNICIAN:: Other (Sagar Courtney) Anesthesia: GETPam Estimated blood loss (mL): 25 Clinical Note:: She is a 23-year-old 0 para 0 young lady who had sudden onset of severe right lower quadrant pain. Ultrasound showed that she had a copious amount of fluid in the pelvis that went all the way up to Morison's pouch. She had pain requiring Dilaudid. She was hemodynamically stable. We elected to perform a diagnostic laparoscopy. Ultrasound showed a 4 cm right hemorrhagic ovarian cyst. Operative findings:: She had a moderate amount of fluid and blood in the pelvis. On examination of the right ovary it was enlarged and there was a clot in the right ovary. There was a defect in the right ovary as well. It was oozing. The rest of the pelvis appeared normal. The upper abdomen appeared normal. The left ovary and tube appeared normal. Operative note:: She was taken the operating room where general anesthesia was found be adequate. She was prepped and draped in the normal fashion in the lithotomy position. I injected 10 cc of ropivacaine around the umbilicus and made a small incision within the umbilicus. I inserted a Veress needle into the abdominal cavity. The abdominal cavity was then insufflated with carbon oxide gas to a pressure of 20 mmHg. Then using a 5 mm laparoscope I entered the abdominal cavity under direct vision. I then injected through and through the pubic hairline, made a small incision here and inserted a 5 mm trocar under direct vision. I identified the inferior epigastric arteries, went lateral to these on the left side and injected through and through with ropivacaine. I then inserted a 5 mm trocar under direct vision. The findings were as previously dictated. I rinsed the pelvis well with saline. I then was able to grasp the ovary and there was some ooze from the base of the ovary I suctioned out the clot from the ovary and injected Surgicel powder into the defect of the ovary. Hemostasis was assured. The pelvis was then once again rinsed. The gas was out of the abdomen and once again hemostasis was assured. The secondary trocars were removed under direct vision. The gas was out of the abdomen. The primary trocar and camera removed together. She tolerated procedure well and was taken the recovery room in excellent condition. All sponge, instrument and needle counts were correct. Estimated blood loss is less than 25 cc during the surgical procedure. Condition: stable Disposition: PACU Specimens:: None Complications:: None
--- NOTE | 2024-08-05 07:07 | EXP.ANES.I ---
[facility] Anesthesia Record Part I Anesthesia Record I Intake, IV Amount: 800 Hydration: Adequate Estimated blood loss (mL): 0 Urine output (mL): 400 Blood Products used (#): none Blood Pressure: 117/84 SaO2: 98 Pulse Rate: 85 Airway Patency: Patent Respiratory Rate: 14 Temperature: 97.0 F Patient is:: Awake and Stable Stable to PACU at:: 07:04
[2024-08-05] MEDS: MEPERIDINE 25MG/ML 1ML SYRINGE 12.5 MG IV (07:27)
[2024-08-05] MEDS: ROPIVACAINE 0.5% 30ML VIAL 300 MG (07:32)
[2024-08-05] MEDS: SODIUM CHLORIDE IRRIG SOLUTION 3,000 ML 999 ML IR (07:33)
[2024-08-05] MEDS: FENTANYL 100MCG/2ML VIAL 100 MCG IV (08:08)
[2024-08-05] MEDS: LACTATED RINGERS 1000ML 1,000 ML 100 ML IV (08:11)
[2024-08-05] MEDS: OXYCODONE 5MG W/APAP 325MG TABLET 2 EACH PO (08:27)
[2024-08-05] MEDS: diphenhydrAMINE 50MG/ML VIAL 12.5 MG IV (08:28)
--- NOTE | 2024-08-05 10:32 | EXP.ANES.II ---
[facility] Anesthesia Record Part II Anesthesia Record Part II Discharge Time: 07:35 Destination: Surgical Day Care (OP Surgery) PACU nurse assessment reviewed?: Yes Patient Condition:: Good Anesthesia Complications:: None Swallowing reflex intact?: Yes Airway Patency: Patent Cyanosis?: No Blood Pressure: 109/72 SaO2: 100 Respiratory Rate: 16 Pulse Rate: 72 Temperature: 97 F Mental Status: Alert & Oriented Pain level:: 5 Nausea and/or vomitting:: None Intake, IV Amount: 0 Hydration: Adequate
== END 2024-08-05 08:51 | disposition home or self-care (01) ==
LOC: ER 05:34 → SDC 05:52
PROVIDERS: Emergency Provider Emergency Medicine; PCP Nurse Practitioner Family; Visit Provider Nurse Practitioner Obstetrics & Gynecology
PROC: (CPT 49320; principal; 2024-08-05 05:30)
DX: N83.201 Unspecified ovarian cyst, right side (principal); Z88.2 Allergy status to sulfonamides
CPT/HCPCS: 49320; 76830; 80053; 84703; 85025; 86850; J1100; J1171; J1200; J2175; J2250; J2405; J3010; J7120

== ENCOUNTER 2024-10-12 15:56 | Outpatient (CLI) | payer OTHER, SELFPAY ==
--- OUTSIDE RECORDS SUMMARY | 2024-10-12 15:58 | XMS_ITS | Clinical Summary ---
Author Organization [facility] Address [address] [place] [address] Phone Care Team Providers Care Flue Lining Dipper Name Role Phone Larry Kendrick MD Primary Care Provider [phone] Allergies Active Allergy Reactions Criticality Noted Date Comments Cefprozil Rash 03/19/2018 Clarithromycin Rash 03/19/2018 Sulfa (Sulfonamide Antibiotics) Rash 02/07 Medications HYDROcodone-acet aminophen (NORCO) 5-325 mg Oral Tablet Take 1 Tab by mouth every 4 hours as needed. Active Active Problems Problem Noted Date Diagnosed Date Strain of right shoulder 04/16/2023 Surgical History Surgery Date Site/Laterality Comments SHOULDER ARTHROSCOPY 03/19/2018 Right RIGHT SHOULDER ARTHROSCOPIC anterior and posterior labral repair; Surgeon: Abdullahi Guillermo MD; Location: [facility]; Service: Orthopedics Medical devices from this surgery are in the Medical Devices section. Family History Medical History Relation Name Comments No Known Problems Father Diabetes Maternal Grandfather Anesth Problems Maternal Grandmother hard to wake Cancer Mother kidney Cancer Paternal Grandfather bladder Diabetes Paternal Grandmother High Blood Pressure Paternal Grandmother Relation Name Status Comments Father Alive Maternal Grandfather Alive Maternal Grandmother Alive Mother Alive Paternal Grandfather Paternal Grandmother Social History Tobacco Use Types Packs/Day Years Used Date Smoking Tobacco: Never Smokeless Tobacco: Never Alcohol Use Standard Drinks/Week Comments No 0 (1 standard drink = 0.6 oz pur e alcohol) Comments No Sex and Gender Information Value Date Recorded Sex Assigned at Not on file Legal Sex Female 8:11 AM EST Gender Identity Not on file Sexual Orientation Not on file Obstetrics History Last Filed Vital Signs Vital Sign Reading Time Taken Comments Blood Pressure 112/64 03/19/2018 11:10 AM EST Pulse 79 03/19/2018 11:10 AM EST Temperature 36.6 C (97.9 F) 03/19/2018 11:10 AM EST Respiratory Rate 16 03/19/2018 11:10 AM EST Oxygen Saturation 100% 03/19/2018 11:10 AM EST Inhaled Oxygen Concentration - - Weight 107.7 kg (237 lb 8 oz) 03/19/2018 7:24 AM EST Height 170.2 cm (5' 7 ) 03/19/2018 7:24 AM EST Body Mass Index 37.2 03/19/2018 7:24 AM EST Plan of Treatment Health Maintenance Due Date Last Done Comments Annual Wellness Exam 12/05/2003 HPV (3 - 3-dose series) 10/04/2016 07/12/2016, 03/06 Meningococcal B Vaccine (1 of 2 - Standard) 2016 Cervical Cancer Screening 2021 Pap Smear 2021 COVID-19 Vaccine ( - 2023- season) 2023 Influenza Vaccine (#1) 2024 12/31/2021 DTaP/TDaP/Td (8 - Td or Tdap) 11/14/2031 11/13/2021, 12/30/2011, 09/21/2005, Additional history exists Pneumococcal Vaccine 0-49 Aged Out 06/30/2001, 03/2000 No longer eligible based on patient's age to complete this topic Hepatitis B Vaccine Completed 04/23/2002, 06/30/2001, 02/16/2001, Additional history exists Medical Devices Implanted Type Area Prepress Technician Device Identifier Shelf Expiration Date Model / Serial / Lot [place] Suture 1.3mm Y-Knot Flex - [id number] Implanted:Qty: 1 on 03/19/2018 by Abdullahi Guillermo MD at [facility] Right: Shoulder CONMED:LINVATEC 11/20/2022 Y1301 / [id number] / [id number] [place] Suture 1.3mm Y-Knot Flex - [id number] Implanted:Qty: 1 on 03/19/2018 by Abdullahi Guillermo MD at [facility] Right: Shoulder CONMED:LINVATEC 11/20/2022 Y1301 / [id number] / [id number] [place] Suture 1.3mm Y-Knot Flex - [id number] Implanted:Qty: 1 on 03/19/2018 by Abdullahi Guillermo MD at [facility] Right: Shoulder CONMED:LINVATEC 08/17/2022 Y1301 / [id number] / [id number] [place] Suture 1.3mm Y-Knot Flex - [id number] Implanted:Qty: 1 on 03/19/2018 by Abdullahi Guillermo MD at [facility] Right: Shoulder CONMED:LINVATEC 12/08/2022 Y1301 / [id number] / [id number] [place] Suture 1.3mm Y-Knot Flex - [id number] Implanted:Qty: 1 on 03/19/2018 by Abdullahi Guillermo MD at [facility] Right: Shoulder CONMED:LINVATEC 02/01/2023 Y1301 / [id number] / [id number] [place] Suture 1.3mm Y-Knot Flex - [id number] Implanted:Qty: 1 on 03/19/2018 by Abdullahi Guillermo MD at [facility] Right: Shoulder CONMED:LINVATEC 02/01/2023 Y1301 / / [id number] Insurance [facility] [place] [address] HAMZAH PPO * Guarantor: Carmen Carter Account Type Relation to Patient Date of Phone Billing Address [place] Personal Family Self Advance Directives For more information, please contact: [phone] * Full Code (Latest Code Status on File) Date Activated Date Inactivated Comments 03/19/2018 10:45 AM 03/20/2018 6:08 AM Care Teams Flue Lining Dipper Relationship Specialty Start Date End Date Larry Kendrick MD [address] [place] [address] PCP - General Family Medicine 03/18/18
[2024-10-12 16:13] LABS: Hematocrit 38.4 % (37.0-47.0); Hemoglobin 12.3 g/dL (12.2-16.2); Immature Granulocytes % 0.3 %; Mean Corpuscular HGB Conc 32.0 g/dL (31.8-35.4); Mean Corpuscular Hemoglobin 28.2 pg (27.0-31.2); Mean Corpuscular Volume 88.1 fl (81-99); Nucleated Red Blood Cells % 0 %; Platelet Count 222 K/mm3 (142-424); Red Blood Count 4.36 M/mm3 (4.20-5.40); Red Cell Distribution Width-SD 40.6 fL; White Blood Count 3.4 K/mm3 (4.8-10.8)
[2024-10-12 17:17] LABS: 25-OH Vitamin D, Total 28.2 ng/mL (30-100)
[2024-10-12 17:44] LABS: Albumin Level 3.5 g/dl (3.5-5.0); Chloride 104 mmol/L (98-107); Potassium 4.1 mmoL/L (3.5-5.1); Sodium 135 mmol/L (136-145)
[2024-10-12 17:47] LABS: Alanine Aminotransferase 57 U/L (12-78); Albumin/Globulin Ratio 1.1 (1.1-1.8); Alkaline Phosphatase 71 U/L (38-126); Anion Gap 8.1 mEq/L (5-15); Aspartate Amino Transferase 37 U/L (14-36); Bilirubin,Total 0.5 mg/dl (0.2-1.3); Carbon Dioxide 27 mmol/L (22.0-30.0); Cholesterol 139 mg/dl (140-200); Globulin 3.3 g/dL (1.3-3.2); Total Protein,Serum 6.8 g/dl (6.3-8.2); Triglycerides 47 mg/dl (30-150)
[2024-10-12 17:48] LABS: Calcium 9.7 mg/dl (8.4-10.2); Glucose 84 mg/dl (74-100); HDL Cholesterol 71 mg/dl (40-60)
[2024-10-12 18:46] LABS: Blood Urea Nitrogen 11 mg/dl (7-17); Creatinine,Serum 0.70 mg/dl (0.52-1.04); Estimated Glomerular Filt Rate 104 ml/min (>60); GFR (African American) 125 ML/MIN (>60)
[2024-10-12 19:17] LABS: Thyroid Stimulating Hormone 1.85 uIU/mL (0.465-4.68)
[2024-10-12 19:46] LABS: Hemoglobin A1C 4.4 % (4.0-6.0)
[2024-10-13 06:20] LABS: Insulin Level Total 3.0 uIU/mL (2.6-24.9)
[2024-10-13 08:13] LABS: FSH 8.1 mIU/mL (.); LH 8.4 mIU/mL (.); Testosterone,Total 41 ng/dL (13-71)
== END 2024-10-12 23:59 | disposition home or self-care (01) ==
LOC: LAB 15:56
PROVIDERS: PCP Nurse Practitioner Family; Visit Provider Obstetrics & Gynecology
DX: Z31.9 Encounter for procreative management, unspecified (principal)
CPT/HCPCS: 36415; 80053; 80061; 82306; 82670; 83001; 83002; 83036; 83525; 84144; 84403; 84443; 85025

== ENCOUNTER 2024-10-14 07:55 | Outpatient (CLI) | payer OTHER, SELFPAY ==
--- OUTSIDE RECORDS SUMMARY | 2024-10-14 07:58 | XMS_ITS | Clinical Summary ---
Author Organization [facility] Address [address] [place] [address] Phone Care Team Providers Care Binder And Wrapper Packer Name Role Phone Larry Kendrick MD Primary Care Provider [phone] Allergies Active Allergy Reactions Criticality Noted Date [...] labral repair; Surgeon: Abdullahi Guillermo MD; Location: [facility]; Service: Orthopedics Medical devices from [...] history exists Medical Devices Implanted Type Area Coding Assistant Device Identifier Shelf Expiration Date Model / Serial / Lot [place] Suture 1.3mm Y-Knot Flex - [id number] Implanted:Qty: 1 on 03/19/2018 by Abdullahi Guillermo MD at [facility] Right: Shoulder CONMED:LINVATEC 11/20/2022 Y1301 / [id number] / [id number] [place] Suture 1.3mm Y-Knot Flex - [id number] Implanted:Qty: 1 on 03/19/2018 by Abdullahi Guillermo MD at [facility] Right: Shoulder CONMED:LINVATEC 11/20/2022 Y1301 / [id number] / [id number] [place] Suture 1.3mm Y-Knot Flex - [id number] Implanted:Qty: 1 on 03/19/2018 by Abdullahi Guillermo MD at [facility] Right: Shoulder CONMED:LINVATEC 08/17/2022 Y1301 / [id number] / [id number] [place] Suture 1.3mm Y-Knot Flex - [id number] Implanted:Qty: 1 on 03/19/2018 by Abdullahi Guillermo MD at [facility] Right: Shoulder CONMED:LINVATEC 12/08/2022 Y1301 / [id number] / [id number] [place] Suture 1.3mm Y-Knot Flex - [id number] Implanted:Qty: 1 on 03/19/2018 by Abdullahi Guillermo MD at [facility] Right: Shoulder CONMED:LINVATEC 02/01/2023 Y1301 / [id number] / [id number] [place] Suture 1.3mm Y-Knot Flex - [id number] Implanted:Qty: 1 on 03/19/2018 by Abdullahi Guillermo MD at [facility] Right: Shoulder CONMED:LINVATEC 02/01/2023 Y1301 / / [id number] Insurance [facility] [place] [address] HAMZAH PPO * Guarantor: Carmen Carter Account Type Relation to Patient Date of Phone Billing Address [place] Personal Family Self Advance Directives For more information, please contact: [phone] * Full Code (Latest Code Status on File) Date Activated Date Inactivated Comments 03/19/2018 10:45 AM 03/20/2018 6:08 AM Care Teams Binder And Wrapper Packer Relationship Specialty Start Date End Date Larry Kendrick MD [address] [place] [address] PCP - General Family Medicine 03/18/18
--- NOTE | 2024-10-14 08:00 | US_ITS ---
PROCEDURE: US TRANSVAGINAL CLINICAL INDICATION: pelvic cramping COMPARISON: CT CT ABDOMEN PELVIS W CON from 01/24/2024 US US TRANSVAGINAL from 08/05/2024 FINDINGS: Transvaginal sonographic images of the pelvis were obtained. UTERUS: 7.3cm x 5.0cmx 2.9 cm anteverted with a combined endometrial thickness of 1.7mm. LEFT OVARY: 3.2cmx2.6 cmx1.9cm with a volume of 8.1ml. Follicle 1. 0.71 cm. Follicle 2. 0.79 cm. Follicle 3. 0.75 cm Follicle 4. 0.53 cm. There are multiple small peripheral follicles giving the ovary a polycystic appearance. RIGHT OVARY: 4.5 cmx 2.9 cmx2.6 cm with a volume of 18ml. Follicle 1. 1.14 cm. Follicle 2. 1.25 cm. Follicle 3. 0.64 cm There are several small peripheral follicles. Both ovaries are seen and appear multi-cystic. Doppler flow to both ovaries are seen. There is no fluid in the cul-de-sac. IMPRESSION: 1. Anteverted uterus normal in shape and size. The endometrium is thin. 2. Both ovaries are seen and contain multiple follicles. Left ovary has at least 4 follicles in the right ovary has 3 follicles. The left ovary has a more polycystic appearance. 3. No fluid in the cul-de-sac. Dictated by: Angel Pappas MD 10/14/2024 14:32 Angel Pappas MD in OV 10/14/2024 14:32
== END 2024-10-14 23:59 | disposition home or self-care (01) ==
LOC: RAD 07:57
PROVIDERS: PCP Nurse Practitioner Family; Visit Provider Obstetrics & Gynecology
DX: Z87.42 Personal history of other diseases of the female genital tract; N85.4 Malposition of uterus; N83.02 Follicular cyst of left ovary; N83.01 Follicular cyst of right ovary
CPT/HCPCS: 76830

== ENCOUNTER 2024-11-04 09:09 | Outpatient (CLI) | payer OTHER, SELFPAY ==
--- OUTSIDE RECORDS SUMMARY | 2024-11-04 09:12 | XMS_ITS | Clinical Summary ---
Author Organization [facility] Address [address] [place] [address] Phone Care Team Providers Care Compensation Specialist Name Role Phone Larry Kendrick MD Primary Care Provider [phone] Allergies Active Allergy Reactions Criticality Noted Date [...] labral repair; Surgeon: Abdullahi Guillermo MD; Location: [facility]; Service: Orthopedics Medical devices from this [...] history exists Medical Devices Implanted Type Area Corporate Development Officer Device Identifier Shelf Expiration Date Model / Serial / Lot [place] Suture 1.3mm Y-Knot Flex - [id number] Implanted:Qty: 1 on 03/19/2018 by Abdullahi Guillermo MD at [facility] Right: Shoulder CONMED:LINVATEC 11/20/2022 Y1301 / [id number] / [id number] [place] Suture 1.3mm Y-Knot Flex - [id number] Implanted:Qty: 1 on 03/19/2018 by Abdullahi Guillermo MD at [facility] Right: Shoulder CONMED:LINVATEC 11/20/2022 Y1301 / [id number] / [id number] [place] Suture 1.3mm Y-Knot Flex - [id number] Implanted:Qty: 1 on 03/19/2018 by Abdullahi Guillermo MD at [facility] Right: Shoulder CONMED:LINVATEC 08/17/2022 Y1301 / [id number] / [id number] [place] Suture 1.3mm Y-Knot Flex - [id number] Implanted:Qty: 1 on 03/19/2018 by Abdullahi Guillermo MD at [facility] Right: Shoulder CONMED:LINVATEC 12/08/2022 Y1301 / [id number] / [id number] [place] Suture 1.3mm Y-Knot Flex - [id number] Implanted:Qty: 1 on 03/19/2018 by Abdullahi Guillermo MD at [facility] Right: Shoulder CONMED:LINVATEC 02/01/2023 Y1301 / [id number] / [id number] [place] Suture 1.3mm Y-Knot Flex - [id number] Implanted:Qty: 1 on 03/19/2018 by Abdullahi Guillermo MD at [facility] Right: Shoulder CONMED:LINVATEC 02/01/2023 Y1301 / / [id number] Insurance [facility] [place] [address] HAMZAH PPO * Guarantor: Carmen Carter Account Type Relation to Patient Date of Phone Billing Address [place] Personal Family Self Advance Directives For more information, please contact: [phone] * Full Code (Latest Code Status on File) Date Activated Date Inactivated Comments 03/19/2018 10:45 AM 03/20/2018 6:08 AM Care Teams Compensation Specialist Relationship Specialty Start Date End Date Larry Kendrick MD [address] [place] [phone] PCP - General Family Medicine 03/18/18
== END 2024-11-04 23:59 | disposition home or self-care (01) ==
LOC: LAB 09:10
PROVIDERS: PCP Nurse Practitioner Family; Visit Provider Obstetrics & Gynecology
DX: Z34.90 Encounter for supervision of normal pregnancy, unspecified, unspecified trimester (principal); N92.6 Irregular menstruation, unspecified; Z3A.00 Weeks of gestation of pregnancy not specified
CPT/HCPCS: 36415; 84144; 84702

== ENCOUNTER 2024-11-06 09:42 | Outpatient (CLI) | payer OTHER, SELFPAY ==
--- OUTSIDE RECORDS SUMMARY | 2024-11-06 09:45 | XMS_ITS | Clinical Summary ---
Author Organization [facility] Address [address] [place] [address] Phone Care Team Providers Care Supervisor Graphite Name Role Phone Larry Kendrick MD Primary Care Provider [phone] Allergies Active Allergy Reactions Criticality Noted Date [...] labral repair; Surgeon: Abdullahi Guillermo MD; Location: [facility]; Service: Orthopedics Medical devices from this surgery [...] history exists Medical Devices Implanted Type Area Risk Assessment Consultant Device Identifier Shelf Expiration Date Model / Serial / Lot [place] Suture 1.3mm Y-Knot Flex - [id number] Implanted:Qty: 1 on 03/19/2018 by Abdullahi Guillermo MD at [facility] Right: Shoulder CONMED:LINVATEC 11/20/2022 Y1301 / [id number] / [id number] [place] Suture 1.3mm Y-Knot Flex - [id number] Implanted:Qty: 1 on 03/19/2018 by Abdullahi Guillremo MD at [facility] Right: Shoulder CONMED:LINVATEC 11/20/2022 Y1301 / [id number] / [id number] [place] Suture 1.3mm Y-Knot Flex - [id number] Implanted:Qty: 1 on 03/19/2018 by Abdullahi Guillermo MD at [facility] Right: Shoulder CONMED:LINVATEC 08/17/2022 Y1301 / [id number] / [id number] [place] Suture 1.3mm Y-Knot Flex - [id number] Implanted:Qty: 1 on 03/19/2018 by Abdullahi Guillermo MD at [facility] Right: Shoulder CONMED:LINVATEC 12/08/2022 Y1301 / [id number] / [id number] [place] Suture 1.3mm Y-Knot Flex - [id number] Implanted:Qty: 1 on 03/19/2018 by Abdullahi Guillermo MD at [facility] Right: Shoulder CONMED:LINVATEC 02/01/2023 Y1301 / [id number] / [id number] [place] Suture 1.3mm Y-Knot Flex - [id number] Implanted:Qty: 1 on 03/19/2018 by Abdullahi Guillermo MD at [facility] Right: Shoulder CONMED:LINVATEC 02/01/2023 Y1301 / / [id number] Insurance [facility] [place] [address] HAMZAH PPO * Guarantor: Carmen Carter Account Type Relation to Patient Date of Phone Billing Address [place] Personal Family Self Advance Directives For more information, please contact: [phone] * Full Code (Latest Code Status on File) Date Activated Date Inactivated Comments 03/19/2018 10:45 AM 03/20/2018 6:08 AM Care Teams Supervisor Graphite Relationship Specialty Start Date End Date Larry Kendrick MD [address] [place] [phone] PCP - General Family Medicine 03/18/18
== END 2024-11-06 23:59 | disposition home or self-care (01) ==
LOC: LAB 09:43
PROVIDERS: PCP Nurse Practitioner Family; Visit Provider Obstetrics & Gynecology
DX: Z34.90 Encounter for supervision of normal pregnancy, unspecified, unspecified trimester (principal); Z3A.00 Weeks of gestation of pregnancy not specified
CPT/HCPCS: 36415; 84702

== ENCOUNTER 2024-11-09 03:57 | Outpatient (CLI) | payer OTHER, SELFPAY ==
--- OUTSIDE RECORDS SUMMARY | 2024-11-09 03:59 | XMS_ITS | Clinical Summary ---
Author Organization [facility] Address [address] [address] Phone Care Team Providers Care Insurance Claims Examiner Name Role Phone Larry Kendrick MD Primary Care Provider [phone] Allergies Active Allergy Reactions Criticality Noted Date [...] labral repair; Surgeon: Abdullahi Guillermo MD; Location: [facility]; Service: Orthopedics Medical devices from this surgery [...] history exists Medical Devices Implanted Type Area Conduit Cleaner Device Identifier Shelf Expiration Date Model / Serial / Lot [place] Suture 1.3mm Y-Knot Flex - [id number] Implanted:Qty: 1 on 03/19/2018 by Abdullahi Guillermo MD at [facility] Right: Shoulder CONMED:LINVATEC 11/20/2022 Y1301 / [id number] / [id number] [place] Suture 1.3mm Y-Knot Flex - [id number] Implanted:Qty: 1 on 03/19/2018 by Abdullahi Guillermo MD at [facility] Right: Shoulder CONMED:LINVATEC 11/20/2022 Y1301 / [id number] / [id number] [place] Suture 1.3mm Y-Knot Flex - [id number] Implanted:Qty: 1 on 03/19/2018 by Abdullahi Guillermo MD at [facility] Right: Shoulder CONMED:LINVATEC 08/17/2022 Y1301 / [id number] / [id number] [place] Suture 1.3mm Y-Knot Flex - [id number] Implanted:Qty: 1 on 03/19/2018 by Abdullahi Guillermo MD at [facility] Right: Shoulder CONMED:LINVATEC 12/08/2022 Y1301 / [id number] / [id number] [place] Suture 1.3mm Y-Knot Flex - [id number] Implanted:Qty: 1 on 03/19/2018 by Abdullahi Guillermo MD at [facility] Right: Shoulder CONMED:LINVATEC 02/01/2023 Y1301 / [id number] / [id number] [place] Suture 1.3mm Y-Knot Flex - [id number] Implanted:Qty: 1 on 03/19/2018 by Abdullahi Guillermo MD at [facility] Right: Shoulder CONMED:LINVATEC 02/01/2023 Y1301 / / [id number] Insurance [facility] [place] [address] HAMZAH PPO * Guarantor: Carmen Carter Account Type Relation to Patient Date of Phone Billing Address [place] Personal Family Self Advance Directives For more information, please contact: [phone] * Full Code (Latest Code Status on File) Date Activated Date Inactivated Comments 03/19/2018 10:45 AM 03/20/2018 6:08 AM Care Teams Insurance Claims Examiner Relationship Specialty Start Date End Date Larry Kendrick MD [address] [place] [phone] PCP - General Family Medicine 03/18/18
== END 2024-11-09 23:59 | disposition home or self-care (01) ==
LOC: LAB 03:58
PROVIDERS: PCP Nurse Practitioner Family; Visit Provider Emergency Medicine
DX: Z32.01 Encounter for pregnancy test, result positive (principal)
CPT/HCPCS: 84702

== ENCOUNTER 2024-12-07 13:10 | Outpatient (CLI) | payer OTHER, SELFPAY ==
--- OUTSIDE RECORDS SUMMARY | 2024-12-08 09:59 | XMS_ITS | Clinical Summary ---
Author Organization [facility] Address [address] [place] [address] Phone Care Team Providers Care Riding Teacher Name Role Phone Larry Kendrick MD Primary Care Provider [phone] Allergies Active Allergy Reactions Criticality Noted Date [...] labral repair; Surgeon: Abdullahi Guillermo MD; Location: [facility]; Service: Orthopedics Medical devices from this surgery [...] this topic Medical Devices Implanted Type Area Institutional Asset Manager Device Identifier Shelf Expiration Date Model / Serial / Lot [place] Suture 1.3mm Y-Knot Flex - [id number] Implanted:Qty: 1 on 03/19/2018 by Abdullahi Guillermo MD at [facility] Right: Shoulder CONMED:LINVATEC 11/20/2022 Y1301 / [id number] / [id number] [place] Suture 1.3mm Y-Knot Flex - [id number] Implanted:Qty: 1 on 03/19/2018 by Abdullahi Guillermo MD at [facility] Right: Shoulder CONMED:LINVATEC 11/20/2022 Y1301 / [id number] / [id number] [place] Suture 1.3mm Y-Knot Flex - [id number] Implanted:Qty: 1 on 03/19/2018 by Abdullahi Guillermo MD at [facility] Right: Shoulder CONMED:LINVATEC 08/17/2022 Y1301 / [id number] / [id number] [place] Suture 1.3mm Y-Knot Flex - [id number] Implanted:Qty: 1 on 03/19/2018 by Abdullahi Guillermo MD at [facility] Right: Shoulder CONMED:LINVATEC 12/08/2022 Y1301 / [id number] / [id number] [place] Suture 1.3mm Y-Knot Flex - [id number] Implanted:Qty: 1 on 03/19/2018 by Abdullahi Guillermo MD at [facility] Right: Shoulder CONMED:LINVATEC 02/01/2023 Y1301 / [id number] / [id number] [place] Suture 1.3mm Y-Knot Flex - [id number] Implanted:Qty: 1 on 03/19/2018 by Abdullahi Guillermo MD at [facility] Right: Shoulder CONMED:LINVATEC 02/01/2023 Y1301 / / [id number] Insurance [facility] [place] [address] HAMZAH PPO * Guarantor: Carmen Carter Account Type Relation to Patient Date of Phone Billing Address [place] Personal Family Self Advance Directives For more information, please contact: [phone] * Full Code (Latest Code Status on File) Date Activated Date Inactivated Comments 03/19/2018 10:45 AM 03/20/2018 6:08 AM Care Teams Riding Teacher Relationship Specialty Start Date End Date Larry Kendrick MD [address] [place] [address] PCP - General Family Medicine 03/18/18
[2024-12-10 09:14] LABS: Neisseria gonorrhoeae, NAA Negative (Negative)
== END 2024-12-07 23:59 | disposition home or self-care (01) ==
LOC: LAB.DROPOF 12-08 09:40
PROVIDERS: PCP Obstetrics & Gynecology; Visit Provider Obstetrics & Gynecology
DX: Z34.81 Encounter for supervision of other normal pregnancy, first trimester (principal)
CPT/HCPCS: 87086; 87491; 87591

== ENCOUNTER 2024-12-08 00:32 | Outpatient (CLI) | payer OTHER, SELFPAY ==
--- OUTSIDE RECORDS SUMMARY | 2024-12-08 00:35 | XMS_ITS | Clinical Summary ---
Author Organization [facility] Address [address] [place] [address] Phone Care Team Providers Care Pelletizer Name Role Phone Larry Kendrick MD Primary Care Provider [phone] Allergies Active Allergy Reactions Criticality Noted Date [...] labral repair; Surgeon: Abdullahi Guillermo MD; Location: [facility]; Service: Orthopedics Medical devices from this [...] on file Sexual Orientation Not on file Last Filed Vital Signs Vital Sign Reading [...] (3 - 3-dose series) 10/04/2016 07/12/2016, 03/06 Cervical Cancer Screening 2021 Pap Smear 2021 COVID-19 Vaccine ( season) 2024 Influenza Vaccine (#1) 2024 12/31/2021 DTaP/TDaP/Td (8 - Td or Tdap) 11/14/2031 11/13/2021, 12/30/2011, 09/21/2005, Additional history exists Pneumococcal Vaccine 0-49 Aged Out 06/30/2001, 03/2000 No longer eligible based on patient's age to complete this topic Hepatitis B Vaccine Completed 04/23/2002, 06/30/2001, 02/16/2001, Additional history exists Meningococcal B Vaccine Aged Out No l onger eligible based on patient's age to complete this topic Medical Devices Implanted Type Area Topographical Field Assistant Device Identifier Shelf Expiration Date Model / Serial / Lot [place] Suture 1.3mm Y-Knot Flex - [id number] Implanted:Qty: 1 on 03/19/2018 by Abdullahi Guillermo MD at [facility] Right: Shoulder CONMED:LINVATEC 11/20/2022 Y1301 / [id number] / [id number] [place] Suture 1.3mm Y-Knot Flex - [id number] Implanted:Qty: 1 on 03/19/2018 by Abdullahi Guillermo MD at [facility] Right: Shoulder CONMED:LINVATEC 11/20/2022 Y1301 / [id number] / [id number] [place] Suture 1.3mm Y-Knot Flex - [id number] Implanted:Qty: 1 on 03/19/2018 by Abdullahi Guillermo MD at [facility] Right: Shoulder CONMED:LINVATEC 08/17/2022 Y1301 / [id number] [id number] / [id number] [place] Suture 1.3mm Y-Knot Flex - [id number] Implanted:Qty: 1 on 03/19/2018 by Abdullahi Guillermo MD at [facility] Right: Shoulder CONMED:LINVATEC 12/08/2022 Y1301 / [id number] [id number] / [id number] [place] Suture 1.3mm Y-Knot Flex - [id number] Implanted:Qty: 1 on 03/19/2018 by Abdullahi Guillermo MD at [facility] Right: Shoulder CONMED:LINVATEC 02/01/2023 Y1301 / [id number] / [id number] [place] Suture 1.3mm Y-Knot Flex - [id number] Implanted:Qty: 1 on 03/19/2018 by Abdullahi Guillermo MD at [facility] Right: Shoulder CONMED:LINVATEC 02/01/2023 Y1301 / / [id number] Insurance [facility] [place] [address] HAMZAH PPO * Guarantor: Carmen Carter Account Type Relation to Patient Date of Phone Billing Address [place] Personal Family Self Advance Directives For more information, please contact: [phone] * Full Code (Latest Code Status on File) Date Activated Date Inactivated Comments 03/19/2018 10:45 AM 03/20/2018 6:08 AM Care Teams Pelletizer Relationship Specialty Start Date End Date Larry Kendrick MD [address] [place] [address] PCP - General Family Medicine 03/18/18
[2024-12-08 01:16] LABS: Hematocrit 39.3 % (37.0-47.0); Hemoglobin 13.1 g/dL (12.2-16.2); Immature Granulocytes % 0.4 %; Mean Corpuscular HGB Conc 33.3 g/dL (31.8-35.4); Mean Corpuscular Hemoglobin 28.9 pg (27.0-31.2); Mean Corpuscular Volume 86.6 fl (81-99); Nucleated Red Blood Cells % 0 %; Platelet Count 273 K/mm3 (142-424); Red Blood Count 4.54 M/mm3 (4.20-5.40); Red Cell Distribution Width-SD 39.3 fL; White Blood Count 8.1 K/mm3 (4.8-10.8)
[2024-12-08 04:12] LABS: Hepatitis C Ab Qual. W/ RFX NEGATIVE (Negative)
[2024-12-09 05:19] LABS: Hepatitis B Surface Antigen Negative (Negative)
[2024-12-09 07:32] LABS: Rubella Antibodies, IgG 1.37 index (Immune >0.99)
[2024-12-09 14:31] LABS: RPR W/RFX Titers Nonreactive (Nonreactive)
== END 2024-12-08 23:59 | disposition home or self-care (01) ==
LOC: LAB 00:33
PROVIDERS: PCP Nurse Practitioner Family; Visit Provider Obstetrics & Gynecology
DX: Z34.81 Encounter for supervision of other normal pregnancy, first trimester (principal); Z3A.00 Weeks of gestation of pregnancy not specified
CPT/HCPCS: 85025; 86592; 86762; 86803; 86850; 87086; 87340; 87389; 87491; 87591

== ENCOUNTER 2025-02-28 09:52 | Outpatient (CLI) | payer OTHER, SELFPAY ==
--- OUTSIDE RECORDS SUMMARY | 2025-02-28 09:57 | XMS_ITS | Clinical Summary ---
Author Organization [facility] Address [address] [place] [address] Phone Care Team Providers Care Senior Procurement Specialist Name Role Phone Larry Kendrick MD Primary Care Provider [phone] Allergies Active Allergy Reactions Criticality Noted Date [...] labral repair; Surgeon: Abdullahi Guillermo MD; Location: [facility]; Service: Orthopedics Medical devices from this [...] this topic Medical Devices Implanted Type Area Log Clerk Device Identifier Shelf Expiration Date Model / Serial / Lot Winchester Suture 1.3mm Y-Knot Flex - [id number] Implanted:Qty: 1 on 03/19/2018 by Abdullahi Guillermo MD at [facility] Right: Shoulder CONMED:[employer] 11/20/2022 Y1301 / [id number] / [id number] Winchester Suture 1.3mm Y-Knot Flex - [id number] Implanted:Qty: 1 on 03/19/2018 by Abdullahi Guillermo MD at [facility] Right: Shoulder CONMED:[employer] 11/20/2022 Y1301 / [id number] / [id number] Winchester Suture 1.3mm Y-Knot Flex - [id number] Implanted:Qty: 1 on 03/19/2018 by Abdullahi Guillermo MD at [facility] Right: Shoulder CONMED:[employer] 08/17/2022 Y1301 / [id number] / [id number] Winchester Suture 1.3mm Y-Knot Flex - [id number] Implanted:Qty: 1 on 03/19/2018 by Abdullahi Guillermo MD at [facility] Right: Shoulder CONMED:[employer] 12/08/2022 Y1301 / [id number] / [id number] Winchester Suture 1.3mm Y-Knot Flex - [id number] Implanted:Qty: 1 on 03/19/2018 by Abdullahi Guillermo MD at [facility] Right: Shoulder CONMED:[employer] 02/01/2023 Y1301 / [id number] / [id number] Winchester Suture 1.3mm Y-Knot Flex - [id number] Implanted:Qty: 1 on 03/19/2018 by Abdullahi Guillermo MD at [facility] Right: Shoulder CONMED:[employer] 02/01/2023 Y1301 / / [id number] Insurance [facility] [place] [address] [employer] PPO * Guarantor: Carmen Carter Account Type Relation to Patient Date of Phone Billing Address [place] Personal Family Self Advance Directives For more information, please contact: [phone] * Full Code (Latest Code Status on File) Date Activated Date Inactivated Comments 03/19/2018 10:45 AM 03/20/2018 6:08 AM Care Teams Senior Procurement Specialist Relationship Specialty Start Date End Date Larry Kendrick MD [address] [place] [address] PCP - General Family Medicine 03/18/18
--- NOTE | 2025-02-28 10:00 | US_ITS ---
PROCEDURE: US OB /MATERNAL DETAIL CLINICAL INDICATION: Schedule 20wk anatomy scan in 3wks COMPARISON: No exams were available for comparison FINDINGS: Transabdominal sonographic images of the pelvis were obtained. From her established due date she is 20 weeks 2 days. Single viable intrauterine gestation. Cephalic position. Placenta: Posteriorplacenta grade 1. There is an average amount of fluid. The cervix appears satisfactory. Closed and measuring 4.2 cm in length. Complete survey performed and was unremarkable on the submitted images as in PACS. No discrete anomalies identified on survey imaging by technologist. Active fetus. Three-vessel cord with satisfactory umbilical cord insertion. 4- chamber heart noted. Situs, aortic arch, LVOT, RVOT, three-vessel view appear normal. Survey of brain & ventricles Unremarkable. Cerebellum, thalamus, choroid plexus, cisterna magna appear normal. Face and neck survey unremarkable. Profile, nasion, normal. The lips and nose were not visualized due to position. Diaphragm and chest views unremarkable. Abdomen: Both kidneys noted and there is bilateral renal pelvis dilation measuring 4.3 mm and 4.9 mm. Stomach and bladder noted and satisfactory. Spine: Survey of the spine satisfactory with no anomalies identified nor imaged. Cervical, thoracic, lower spine appear normal. Both arms and legs noted. Amniotic Fluid: Adequate. MVP 3.55 cm Measurements: Average ultrasound age 20weeks 4days. Estimated due date by ultrasound age 0507/14/2025. Estimated weight 346g BPD = 21weeks 4days HC = 20weeks 0 days AC = 20weeks 3days FL = 20weeks 2days Growth Percentile= 46 Heart Rate = 142bpm Cerebellum = 20weeks 4days Humerus = 20weeks 2days HC/AC is 1.15 FL/BPD is 0.65 FL/AC is 0.22 IMPRESSION: 1. Viable fetus in the cephalic presentation with a posterior placenta grade 1. 2. The fluid is within normal limits with an MVP 3.55 cm. 3. There is mild bilateral renal pelvis dilation measuring 4.3 mm and 4.9 mm. Suggest the patient return at 28 weeks for follow-up ultrasound. 4. The lips and nose were not well visualized due to position and suggest the patient return in 2 weeks for follow-up. 5. The rest of the anatomical scan appears normal. 6. biometry is consistent with the dates. Dictated by: Angel Pappas MD 03/01/2025 00:04 Angel Pappas MD in [place] 03/01/2025 00:04
== END 2025-02-28 23:59 | disposition home or self-care (01) ==
LOC: RAD 09:52
PROVIDERS: PCP Nurse Practitioner Family; Visit Provider Obstetrics & Gynecology
DX: Z34.82 Encounter for supervision of other normal pregnancy, second trimester (principal); Z3A.20 20 weeks gestation of pregnancy
CPT/HCPCS: 76811